=== PATIENT | female | born 1970 | race Caucasian/White ===

== ENCOUNTER → 2019-07-20 | Outpatient (CLI) | payer OTHER ==
[~2019-07-20] MED LIST: BIRTH CONTROL; CITRATE OF MAG296 ML PO; DULCOLAX5 MG PO; FIORICET 50-321 EACH PO; LEXAPRO20 MG PO; MACROBID 100 M100 M1 PO; PRISTIQ50 MG; ZESTRIL10 MG PO
== END ==
LOC: M.CT 13:00
PROVIDERS: ATTEND Family Medicine
DX: Z13.6 Encounter for screening for cardiovascular disorders (principal); I10 Essential (primary) hypertension